=== PATIENT | female | born 1995 | race Caucasian/White ===

== ENCOUNTER 2020-09-25 18:35 | Outpatient (REF) | payer OTHER, SELFPAY ==
[2020-09-25 20:46] LABS: Bilirubin Negative (Negative); Blood Trace-intact (Negative); Clarity Turbid (Clear); Glucose Negative (Negative); Ketones Negative (Negative); Leukocyte Esterase Trace (Negative); Nitrite Positive (Negative); Specific Gravity >= 1.030 (1.005-1.025); Urobilinogen 0.2 EU/dL (Up TO 0.2); pH 5.5 (5-8)
[2020-09-25 20:52] LABS: Bacteria Moderate HPF (Negative); C & S Indicated? Yes; Casts Negative LPF (Negative); Crystals Many Amorphous HPF (Negative); Epithelial Cells Few HPF (Negative); Mucus Negative (Negative)
== END 2020-09-25 18:36 | disposition home or self-care (01) ==
LOC: LBN 18:35
PROVIDERS: Visit Provider Nurse Practitioner Family
DX: N39.0 Urinary tract infection, site not specified (principal); L29.2 Pruritus vulvae
CPT/HCPCS: 87077; 81003; 81015; 87086; 87186; 87480; 87510; 87660

== ENCOUNTER 2024-05-20 14:29 | Outpatient (REF) | payer BC, SELFPAY ==
--- NOTE | 2024-05-20 11:30 | PAPFT_PTH ---
PATIENT: Leanna Gentile LOC: LOCATED WITHIN [facility]#:[id number] AGE/SX: 28/F ROOM: RE05/20/[address]: Ksenia Jain : 1995 BED: DIS: 05/20/2024 SPEC #: [id number] RECD: 05/20/24 17:58 STATUS: AMPARO REQ #: [id number] LARY: 05/20/24 11:[address]: Ksenia Jain DEPT: [facility] Cytology RECD BY: Theresa Michael ENTERED: 05/20/24 17:58 SP TYPE: PAPFT OTHR DR: Josy Local Tissues: 1 - CX/ENDOCX FOR PAP SMEARS Procedures: PAP THIN PREP/[facility] Screening Comments: [id number] (CHLAMYDIA/GC)
[2024-05-20 16:17] LABS: HCT 38.6 % (36.0-46.0); HGB 13.1 g/dL (11.2-15.7); MCH 30.4 pg (27.0-33.0); MCHC 33.9 % (32.0-36.0); MCV 90 fL (80-95); MPV 9.8 fL (8.0-11.0); Platelet Count 275 10^3/uL (130-400); RBC 4.31 10^6/uL (3.93-5.22); RDW 11.9 % (11.7-14.6); RDW-SD 39.3 fL
[2024-05-22 10:37] LABS: HIV-1/2 Ag & Ab Screen Negative (Negative)
[2024-05-23 10:57] LABS: Syphilis Serology (RPR) Negative (Negative)
[2024-05-23 12:46] LABS: Chlamydia Result Negative (Negative); GC Result Negative (Negative)
[2024-05-23 12:48] LABS: Hepatitis C Ab w Rflx HCV PCR Negative (Negative)
== END 2024-05-20 14:30 | disposition home or self-care (01) ==
LOC: NCHCN 14:29
PROVIDERS: Visit Provider Nurse Practitioner Family
DX: Z11.3 Encounter for screening for infections with a predominantly sexual mode of transmission (principal); Z00.00 Encounter for general adult medical examination without abnormal findings; Z12.4 Encounter for screening for malignant neoplasm of cervix
CPT/HCPCS: 85027; 86803; 87389; 87491; 87591; 88142; 84443; 86592; 87480; 87510; 87660

== ENCOUNTER 2024-08-22 18:25 | Outpatient (REF) | payer BC, SELFPAY | END 2024-08-22 18:26 | disposition home or self-care (01) | LOC: NCHCN 18:25 | PROVIDERS: PCP Nurse Practitioner Family; Visit Provider Nurse Practitioner Family | DX: A59.00 Urogenital trichomoniasis, unspecified (principal) | CPT/HCPCS: 87480; 87510; 87660 ==